=== PATIENT | female | born 1970 | race Asian ===

== ENCOUNTER → 2018-07-04 | Outpatient (CLI) | payer BC | LOC: CIMAGING 11:59 | PROVIDERS: ATTEND Family Medicine | DX: Z12.31 Encounter for screening mammogram for malignant neoplasm of breast (principal) ==

== ENCOUNTER → 2018-07-23 | Outpatient (CLI) | payer BC | LOC: CIMAGING 13:17 | PROVIDERS: ATTEND Family Medicine | DX: R92.8 Other abnormal and inconclusive findings on diagnostic imaging of breast (principal) ==